=== PATIENT | male | born 1990 | race Caucasian/White ===

== ENCOUNTER 2022-06-21 20:24 | Emergency (ER) | payer OTHER ==
[~2022-06-21] VITALS: Ht 170.2 cm; Wt 93.0 kg
[2022-06-21 20:25] VITALS: BP 131/69
--- NOTE | 2022-06-21 20:28 | NUR ---
to lobby a/w bed ambulatory
--- NOTE | 2022-06-21 22:12 | NUR ---
Yamini scott in [facility] - 06/21/22 at [address] Karimi at bedside
--- NOTE | 2022-06-21 22:12 | NUR ---
Dr. Tong at bedside
[2022-06-21] MEDS ORDERED: KETOROLAC 30 MG/ML VIAL IM ONE (22:15)
[2022-06-21] MEDS ORDERED: NAPR-54 PO (22:25)
[2022-06-21] MEDS ORDERED: LID5T TP (22:25)
[2022-06-21] MEDS ORDERED: CYCL-711 PO (22:25)
--- NOTE | 2022-06-21 22:40 | NUR ---
31 Y/O M presents with mechanical fall at home down the stairs at 1700 with feeling of pressure bilateral back 8/10 pain. pt stated he tripped over his kids toys and has some SOB when he is talking. pt is a&ox4, skin intact. pmh-pt denies NKA
--- NOTE | 2022-06-21 23:23 | NUR ---
Patient discharged with v/s stable. Written and verbal after care instructions given and explained. Patient alert, oriented and verbalized understanding of instructions. Ambulatory with steady gait. All questions addressed prior to discharge. ID band removed. Patient advised to follow up with PMD. Rx of cyclobenzaprine hci, lidocaine, and naproxen given. Opportunity to ask questions provided and answered.
== END 2022-06-21 23:23 | disposition home or self-care (01) ==
LOC: MED 20:24
DX: S39.012A Strain of muscle, fascia and tendon of lower back, initial encounter (principal); Z79.899 Other long term (current) drug therapy; Z79.1 Long term (current) use of non-steroidal anti-inflammatories (NSAID); W10.8XXA Fall (on) (from) other stairs and steps, initial encounter; Y92.89 Other specified places as the place of occurrence of the external cause; Y93.89 Activity, other specified; Y99.8 Other external cause status
CPT/HCPCS: 72100; 96372; 99283; J1885

== ENCOUNTER 2022-11-14 18:25 | Emergency (ER) | payer MEDICAID, OTHER ==
[~2022-11-14] VITALS: Ht 170.2 cm; Wt 93.0 kg
[~2022-11-14 18:25] MED LIST: CYCL-711 PO; LID5T TP; NAPR-54 PO
[2022-11-14 18:46] VITALS: BP 131/74; PULSE 92; RESP 20; TEMP 98; O2SAT 100
[2022-11-14 20:01] LABS: BASOPHILS % (AUTO) 0.4 % (0.0-2.0); EOSINOPHILS # (AUTO) 0.2 K/uL (0-0.4); EOSINOPHILS % (AUTO) 2.2 % (0.0-4.0); HEMATOCRIT 42.3 % (36-52); HEMOGLOBIN 14.4 g/dL (12.0-18.0); LYMPHOCYTES # (AUTO) 2.7 K/uL (2.0-11.5); LYMPHOCYTES % (AUTO) 29.4 % (20.5-51.1); MEAN CORPUSCULAR HEMOGLOBIN 28 pg (27-31); MEAN CORPUSCULAR HGB CONC 34 g/dL (33-37); MEAN CORPUSCULAR VOLUME 81.3 fL (80-94); MONOCYTES # (AUTO) 0.7 K/uL (0.8-1.0); MONOCYTES % (AUTO) 8.1 % (1.7-9.3); NEUTROPHILS # (AUTO) 5.4 K/uL (1.8-7.7); NEUTROPHILS % (AUTO) 59.9 % (42.2-75.2); PLATELET COUNT (AUTO) 298 K/uL (140-450); RED BLOOD CELL COUNT(AUTO) 5.21 MIL/uL (4.20-6.10); RED CELL DISTRIBUTION WIDTH 13.5 % (11.6-13.7); WHITE BLOOD COUNT (AUTO) 9.1 K/uL (4.8-10.8)
[2022-11-14 20:18] LABS: ALBUMIN 3.7 g/dL (3.4-5.0); ANION GAP 12.3 (8-16); CARBON DIOXIDE 29.4 mmol/L (21-32); CREATININE 1.4 mg/dL (0.6-1.3); POTASSIUM 3.7 mmol/L (3.5-5.1); TOTAL BILIRUBIN 0.3 mg/dL (0.0-1.0)
--- NOTE | 2022-11-14 21:58 | NUR ---
URINE WALKED TO LAB
[2022-11-14 22:03] LABS: APPEARANCE,URINE CLEAR (CLEAR); BILIRUBIN,URINE NEGATIVE (NEGATIVE); BLOOD, URINE NEGATIVE (NEGATIVE); COLOR,URINE YELLOW (YELLOW); LEUKOCYTE ESTERASE ,URINE TRACE (NEGATIVE); NITRITE, URINE NEGATIVE (NEGATIVE); UGLUCOSE NEGATIVE (NEGATIVE)
[2022-11-14 22:08] LABS: RBC,URINE 0-5 /HPF (0-5)
--- NOTE | 2022-11-14 22:18 | NUR ---
PT TO BED 09
[2022-11-14] MEDS ORDERED: ACET-10509 PO (22:32)
--- NOTE | 2022-11-14 23:00 | NUR ---
Patient is a 32/M who came in due to 07/24 sharp left flank pain radiating to bilateral lower extremities. Patient denies fever/chills, nausea/vomiting/diarrhea, urinary symptoms or trauma/injury to said area. PMHx: Denies NKA
[2022-11-14 23:55] VITALS: BP 115/72; PULSE 71; RESP 15; TEMP 98; O2SAT 99
== END 2022-11-14 23:55 | disposition home or self-care (01) ==
LOC: MED 18:25
DX: N17.9 Acute kidney failure, unspecified (principal); R10.9 Unspecified abdominal pain; E86.0 Dehydration; Z79.899 Other long term (current) drug therapy
CPT/HCPCS: 36415; 80053; 81001; 83690; 85025; 87086; 99283

== ENCOUNTER 2023-01-06 18:27 | Emergency (ER) | payer OTHER ==
[~2023-01-06] VITALS: Ht 175.3 cm; Wt 90.7 kg
[~2023-01-06 18:27] MED LIST changes: +ACET-10509 PO
[2023-01-06 18:29] VITALS: BP 113/71; PULSE 87; RESP 17; TEMP 97.4; O2SAT 99
[2023-01-06] MEDS ORDERED: NACL 0.9% 1,000 ML IV ONE (18:40)
[2023-01-06] MEDS ORDERED: methocarbamoL 500 MG TAB PO STA (18:49)
[2023-01-06] MEDS ORDERED: KETOROLAC 30 MG/ML VIAL IM ONE (18:50)
[2023-01-06] MEDS ORDERED: IBUP-2213 PO (20:30)
[2023-01-06] MEDS ORDERED: METH-1681 PO (20:30)
[2023-01-06 21:02] VITALS: BP 101/55; PULSE 74; RESP 18; TEMP 97.4; O2SAT 97
== END 2023-01-06 21:02 | disposition home or self-care (01) ==
LOC: MED 18:27
DX: S43.402A Unspecified sprain of left shoulder joint, initial encounter (principal); S70.12XA Contusion of left thigh, initial encounter; Z88.8 Allergy status to other drugs, medicaments and biological substances; Z79.899 Other long term (current) drug therapy; V03.90XA Pedestrian on foot injured in collision with car, pick-up truck or van, unspecified whether traffic or nontraffic accident, initial encounter; Y93.89 Activity, other specified; Y92.89 Other specified places as the place of occurrence of the external cause; Y99.8 Other external cause status
CPT/HCPCS: 71045; 73030; 73502; 96360; 96372; 99291; J1885; J7030

== ENCOUNTER 2023-05-09 08:43 | Emergency (ER) | payer MEDICAID, OTHER ==
[~2023-05-09] VITALS: Ht 177.8 cm; Wt 95.4 kg
[~2023-05-09 08:43] MED LIST changes: +IBUP-2213 PO; +METH-1681 PO
[2023-05-09 08:49] VITALS: BP 123/63; PULSE 80; RESP 18; TEMP 98.8; O2SAT 98
[2023-05-09] MEDS ORDERED: IBUP-2218 PO (12:37)
== END 2023-05-09 12:48 | disposition home or self-care (01) ==
LOC: MED 08:43
DX: N43.3 Hydrocele, unspecified (principal); Z79.899 Other long term (current) drug therapy; Z79.1 Long term (current) use of non-steroidal anti-inflammatories (NSAID)
CPT/HCPCS: 76870; 99284; Q0092